=== PATIENT | female | born 1985 | race Caucasian/White ===

== ENCOUNTER 2019-01-19 00:26 | Inpatient (IN) | payer MEDICAID ==
[~2019-01-19] VITALS: Ht 154.9 cm; Wt 120.2 kg
[2019-01-19] MEDS ORDERED: DEXT 5%/LR + PITOCIN 20UNITS/L 1,000 ML IV SCH ×2 (00:46→13:00)
[2019-01-19] MEDS ORDERED: METHYLERGONOVINE MALEATE 0.2 MG/ML IM PRN (01:00)
[2019-01-19] MEDS: LACTATED RINGERS 1,000 ML IV SCH ×2 (01:00→07:40)
[2019-01-19] MEDS ORDERED: LIDOCAINE HCL 1% 20ML VIAL (Pyxis) INJ INFIL SCH (01:00)
[2019-01-19] MEDS ORDERED: BUTORPHANOL TARTRATE 2 MG/ML VIAL IV PRN (01:00)
[2019-01-19] MEDS ORDERED: CARBOPROST TROMETHAMINE 250 MCG/ML AMPUL IM PRN (01:00)
[2019-01-19 01:27] LABS: BASOPHILS % 0.9 % (0.0-2.0); EOSINOPHILS % 0.9 % (0.0-5.0); HEMATOCRIT. 38.8 % (36.0-48.0); HEMOGLOBIN. 13.1 g/dL (12.0-16.0); LYMPHOCYTES % 27.7 % (20.0-50.0); MEAN CORPUSCULAR HEMOGLOBIN 28.8 pg (28.0-32.0); MEAN CORPUSCULAR VOLUME 85.1 fL (81.0-99.0); MONOCYTES % 6.7 % (2.0-8.0); NEUTROPHILS % 63.8 % (40.0-76.0); PLATELET 247 x1000/uL (130-400); RED BLOOD CELL COUNT 4.56 mill/uL (4.2-5.4); RED CELL DISTRIBUTION WIDTH 16.3 % (11.6-14.6)
[2019-01-19 01:33] LABS: PARTIAL THROMBOPLASTIN TIME 28.2 sec (23.4-31.0); PROTHROMBIN TIME 9.8 sec (9.6-11.0)
[2019-01-19 01:36] LABS: CLARITY URINE CLOUDY (CLEAR); COLOR URINE YELLOW (YELLOW); KETONES URINE NEGATIVE (NEGATIVE); LEUKOCYTE ESTERASE URINE 1+ (NEGATIVE); NITRITE URINE NEGATIVE (NEGATIVE); OCCULT BLOOD URINE NEGATIVE (NEGATIVE); PROTEIN URINE TRACE (NEGATIVE); SPECIFIC GRAVITY URINE 1.029 (1.005-1.030)
[2019-01-19 01:48] LABS: *AMPHETAMINES SCREEN URINE NEGATIVE (NEGATIVE); *BARBITURATES SCREEN URINE NEGATIVE (NEGATIVE); *BENZODIAZEPINES SCREEN URINE NEGATIVE (NEGATIVE); *COCAINE SCREEN URINE NEGATIVE (NEGATIVE); METHADONE URINE SCREEN NEGATIVE (NEGATIVE)
[2019-01-19 01:49] LABS: CANNABINOID URINE SCREEN NEGATIVE (NEGATIVE); OPIATES URINE SCREEN NEGATIVE (NEGATIVE); PHENCYCLIDINE URINE SCREEN NEGATIVE (NEGATIVE)
[2019-01-19 02:00] LABS: HEPATITIS B SURFACE ANTIGEN NEGATIVE
[2019-01-19] MEDS ORDERED: SODIUM CHLORIDE 0.9% 1,000 ML IR ONE (11:45)
[2019-01-19] MEDS ORDERED: SODIUM CHLORIDE 0.9% 1,000 ML IR NR (11:45)
[2019-01-19] MEDS ORDERED: IBUPROFEN 400MG TABLET PO PRN (12:45)
[2019-01-19] MEDS ORDERED: RHO(D) IMMUNE GLOBULIN 300 MCG/SYR IM PRN (12:45)
[2019-01-19] MEDS: IBUPROFEN 800MG TABLET PO PRN ×2 (13:51→22:12)
[2019-01-19] MEDS ORDERED: LACTATED RINGERS 1,000 ML IV SCH (14:30)
[2019-01-19 15:00] VITALS: BP 108/54
[2019-01-19 16:00] VITALS: BP 110/62
[2019-01-19 22:00] VITALS: BP 106/63
[2019-01-20 04:00] VITALS: BP 100/63
[2019-01-20] MEDS ORDERED: FENTANYL CITRATE/PF 50MCG/ML 2ML VIAL ONE (05:25)
[2019-01-20 08:30] VITALS: BP 100/54
[2019-01-20 09:00] VITALS: BP_SYST 100; BP_SYST 101; BP_DIAS 52; BP_DIAS 54
[2019-01-20 10:01] LABS: BASOPHILS % 0.4 % (0.0-2.0); EOSINOPHILS % 0.2 % (0.0-5.0); HEMATOCRIT. 35.4 % (36.0-48.0); HEMOGLOBIN. 11.8 g/dL (12.0-16.0); LYMPHOCYTES % 9.7 % (20.0-50.0); MEAN CORPUSCULAR HEMOGLOBIN 28.6 pg (28.0-32.0); MEAN CORPUSCULAR VOLUME 85.8 fL (81.0-99.0); MEAN PLATELET VOLUME 10.1 fl (7.4-10.4); MONOCYTES % 3.3 % (2.0-8.0); NEUTROPHILS % 86.4 % (40.0-76.0); PLATELET 186 x1000/uL (130-400); RED BLOOD CELL COUNT 4.13 mill/uL (4.2-5.4); RED CELL DISTRIBUTION WIDTH 16.5 % (11.6-14.6)
[2019-01-20] MEDS ORDERED: PROPOFOL 200MG/20ML VIAL IV ONE (12:11)
[2019-01-20] MEDS ORDERED: ROCURONIUM BROMIDE 10MG/ML VIAL 5ML IV ONE (12:12)
[2019-01-20] MEDS ORDERED: SUCCINYLCHOLINE CHLORIDE 200MG/10ML IV ONE (12:12)
[2019-01-20] MEDS ORDERED: ONDANSETRON HCL 4MG/2ML INJ ONE (12:12)
[2019-01-20] MEDS ORDERED: NEOSTIGMINE METHYLSULFATE 1MG/ML 10 ML VIAL ONE (12:12)
[2019-01-20] MEDS ORDERED: LIDOCAINE HCL/PF 1% 10 MG/ML 5ML VIAL ONE (12:13)
[2019-01-20] MEDS ORDERED: DEXAMETHASONE 4MG/ML 1ML VIAL ONE (12:13)
[2019-01-20] MEDS ORDERED: CEFAZOLIN SODIUM 1000MG/VIAL ONE (12:13)
[2019-01-20] MEDS ORDERED: KETOROLAC 60MG/2ML VIAL IM ONE (12:14)
[2019-01-20 15:00] VITALS: BP 100/52
[2019-01-20] MEDS: IBUPROFEN 800MG TABLET PO PRN (15:18)
[2019-01-20 22:00] VITALS: BP 119/58
[2019-01-21] MEDS ORDERED: IBUP-2030 MT (05:28)
[2019-01-21 07:45] VITALS: BP 120/62
[2019-01-21] MEDS: IBUPROFEN 800MG TABLET PO PRN (07:50)
[2019-01-21] MEDS ORDERED: INFLUENZA VIRUS VACCINE(AFLURIA) 0.5ML SYR IM ONE (09:00)
[2019-01-21] MEDS ORDERED: TETANUS, DIPHTHERIA, PERTUSSIS VAC/PF 0.5ML (>7YR OLD) IM ONE (09:00)
== END 2019-01-21 10:00 | disposition home or self-care (01) | DRG 541 ==
LOC: OBSVTOIN 00:26 → 8 EST LDRP 00:26 → 8EST 14:18
PROVIDERS: ADMIT Obstetrics & Gynecology; ATTEND Obstetrics & Gynecology
PROC: 10D07Z6 Extraction of Products of Conception, Vacuum, Via Natural or Artificial Opening (ICD-10-PCS; principal; 2019-01-19)
PROC: 0UB70ZZ Excision of Bilateral Fallopian Tubes, Open Approach (ICD-10-PCS; 2019-01-19)
PROC: 10907ZC Drainage of Amniotic Fluid, Therapeutic from Products of Conception, Via Natural or Artificial Opening (ICD-10-PCS; 2019-01-19)
DX: O48.0 Post-term pregnancy (principal); E66.01 Morbid (severe) obesity due to excess calories; O99.214 Obesity complicating childbirth; Z3A.41 41 weeks gestation of pregnancy; Z37.0 Single live birth; Z83.3 Family history of diabetes mellitus; Z30.2 Encounter for sterilization
CPT/HCPCS: 36415; 80305; 81003; 86592; 86703; 86762; 86850; 86900; 87340; 88302; 90686; 90715; G0378; J0330; J0690; J1100; J1885; J2405; J2590; J2704; J2710; J3010; J3490; J7030; J7120

== ENCOUNTER 2022-12-10 02:05 | Emergency (ER) | payer BC, MEDICAID ==
[~2022-12-10] VITALS: Ht 157.5 cm; Wt 82.0 kg
[~2022-12-10 02:05] MED LIST: IBUP-2030 MT
[2022-12-10 02:29] VITALS: TEMP 98.5; O2SAT 98
[2022-12-10 02:52] LABS: CLARITY URINE TURBID (CLEAR); COLOR URINE YELLOW (YELLOW); GLUCOSE URINE NEGATIVE (NEGATIVE); KETONES URINE NEGATIVE (NEGATIVE); LEUKOCYTE ESTERASE URINE 1+ (NEGATIVE); NITRITE URINE NEGATIVE (NEGATIVE); OCCULT BLOOD URINE 3+ (NEGATIVE); PH URINE 5.5 (4.5-8.0); PROTEIN URINE 2+ (NEGATIVE)
[2022-12-10 03:03] LABS: CHLORIDE 104 mEq/L (98-107); INDEX HEMOLYSI 1 (1-3); INDEX ICTERIC 1 (1-4); INDEX LIPEMIC 1 (1-3); POTASSIUM 3.7 mEq/L (3.5-5.1); SODIUM 136 mEq/L (136-145)
[2022-12-10 03:07] LABS: BASOPHILS % 0.9 % (0.0-2.0); EOSINOPHILS % 1.7 % (0.0-5.0); HEMATOCRIT. 39.7 % (36.0-48.0); HEMOGLOBIN. 13.7 g/dL (12.0-16.0); MEAN CORPUSCULAR HEMOGLOBIN 29.9 pg (28.0-32.0); MEAN CORPUSCULAR HGB CONC 34.6 g/dL (31.0-37.0); MEAN CORPUSCULAR VOLUME 86.4 fL (81.0-99.0); MEAN PLATELET VOLUME 9.5 fl (7.4-10.4); MONOCYTES % 6.8 % (2.0-8.0); NEUTROPHILS % 59.6 % (40.0-76.0); PLATELET 271 x1000/uL (130-400); RED BLOOD CELL COUNT 4.59 mill/uL (4.2-5.4); RED CELL DISTRIBUTION WIDTH 13.2 % (11.6-14.6); WHITE BLOOD COUNT 10.8 x1000/uL (4.5-11.0)
[2022-12-10 03:11] LABS: ALANINE AMINOTRANSFERASE 21 IU/L (13-61); ALBUMIN 3.5 g/dL (3.4-5.0); ASPARTATE AMINOTRANSFERASE 12 IU/L (15-37); BILIRUBIN TOTAL 0.2 mg/dL (0.1-1.0); CALCIUM 8.9 mg/dL (8.5-10.1); CARBON DIOXIDE 27 mEq/L (21-32); CREATININE 0.6 mg/dL (0.6-1.3); GLUCOSE 130 mg/dL (70-105); PROTEIN TOTAL 7.6 g/dL (6.0-8.3); UREA NITROGEN BLOOD 12 mg/dL (7-21)
[2022-12-10 03:35] LABS: RBC URINE TNTC /hpf (0-2); SQUAMOUS EPITHELIAL CELL URINE 1+ /lpf (RARE/1+)
[2022-12-10 03:36] LABS: BACTERIA URINE 2+; CALCIUM OXALATE CRYSTALS URINE 2+ /lpf
[2022-12-10] MEDS ORDERED: KETOROLAC 60MG/2ML VIAL IM STA (04:46)
[2022-12-10] MEDS ORDERED: NAPR-1176 MT (05:45)
[2022-12-10 06:24] VITALS: BP 132/82; PULSE 74; RESP 18
== END 2022-12-10 06:26 | disposition home or self-care (01) ==
LOC: ER 02:05
DX: N20.0 Calculus of kidney (principal); Z98.51 Tubal ligation status
CPT/HCPCS: 80053; 81003; 81025; 83690; 85025; 36415; 74176; 96372; 99285; J1885; Z7610 ×2